=== PATIENT | male | born 1990 | race Caucasian/White ===

== ENCOUNTER 2020-05-10 14:02 | Day surgery (SDC) | payer OTHER ==
[~2020-05-10 14:02] MED LIST: Acetaminophen 500 MG TAB PO PRN; Acetaminophen 500 MG TAB PO SCH; Sodium Chloride 0.9% 1,000 ML IV SCH; Vedolizumab 300 MG in Sodium Chloride 0.9% 250 ML 250 ML IVPB SCH
[2020-05-10 14:55] VITALS: BP 111/80; TEMP 98.1
== END 2020-05-10 15:35 | disposition home or self-care (01) ==
LOC: ONC/OP 14:02
PROVIDERS: ATTEND Internal Medicine Gastroenterology
DX: K51.50 Left sided colitis without complications (principal)
CPT/HCPCS: 96413; J3380; J7050

== ENCOUNTER 2020-05-24 14:10 | Day surgery (SDC) | payer OTHER ==
[2020-05-24] MEDS ORDERED: Sodium Chloride 0.9% 20 ML ONE (14:30)
[2020-05-24 14:39] VITALS: BP 125/74; TEMP 97.9
== END 2020-05-24 15:55 | disposition home or self-care (01) ==
LOC: ONC/OP 14:10
PROVIDERS: ATTEND Internal Medicine Gastroenterology
DX: K51.50 Left sided colitis without complications (principal)
CPT/HCPCS: 96413; J3380; J7050

== ENCOUNTER 2020-06-21 14:58 | Day surgery (SDC) | payer OTHER ==
[2020-06-21] MEDS ORDERED: Sodium Chloride 0.9% 20 ML ONE ×2 (15:00→15:51)
[2020-06-21 15:12] VITALS: BP 121/85; TEMP 98.2
== END 2020-06-21 16:11 | disposition home or self-care (01) ==
LOC: ONC/OP 14:58
PROVIDERS: ATTEND Internal Medicine Gastroenterology
DX: K51.50 Left sided colitis without complications (principal)
CPT/HCPCS: 96413; J3380; J7050

== ENCOUNTER 2020-08-25 14:14 | Day surgery (SDC) | payer OTHER ==
[~2020-08-25 14:14] MED LIST changes: -Acetaminophen 500 MG TAB PO SCH; -Sodium Chloride 0.9% 1,000 ML IV SCH
[2020-08-25] MEDS ORDERED: Sodium Chloride 0.9% 20 ML ONE (14:17)
== END 2020-08-25 15:08 | disposition home or self-care (01) ==
LOC: ONC/OP 14:14
PROVIDERS: ATTEND Internal Medicine Gastroenterology
DX: K51.50 Left sided colitis without complications (principal)
CPT/HCPCS: 96413; J3380; J7050

== ENCOUNTER 2020-10-17 14:15 | Day surgery (SDC) | payer OTHER ==
[2020-10-17] MEDS ORDERED: Sodium Chloride 0.9% 20 ML ONE (14:26)
[2020-10-17 15:18] VITALS: BP 121/81; TEMP 97.5
== END 2020-10-17 16:38 | disposition home or self-care (01) ==
LOC: ONC/OP 14:15
PROVIDERS: ATTEND Internal Medicine Gastroenterology
DX: K51.50 Left sided colitis without complications (principal)
CPT/HCPCS: 96413; J3380; J7050

== ENCOUNTER 2020-12-12 13:49 | Day surgery (SDC) | payer OTHER ==
[2020-12-12] MEDS ORDERED: Acetaminophen 500 MG TAB PO PRN ×2 (14:01)
[2020-12-12] MEDS ORDERED: Sodium Chloride 0.9% 1,000 ML IV SCH (14:15)
[2020-12-12] MEDS ORDERED: Vedolizumab 300 MG in Sodium Chloride 0.9% 250 ML 250 ML IVPB SCH (14:15)
[2020-12-12 14:46] VITALS: BP 106/71; TEMP 98.1
[2020-12-13] MEDS ORDERED: FLU VACC QS2020-21(6MOS UP)/PF 60 MCG/0.5 ML SYRINGE IM ONE (09:00)
== END 2020-12-12 16:24 | disposition home or self-care (01) ==
LOC: ONC/OP 13:49
PROVIDERS: ATTEND Internal Medicine Gastroenterology
DX: K51.50 Left sided colitis without complications (principal)
CPT/HCPCS: 96413; J3380; J7050

== ENCOUNTER 2021-02-06 14:02 | Day surgery (SDC) | payer OTHER ==
[~2021-02-06 14:02] MED LIST changes: +Acetaminophen 500 MG TAB PO SCH; +Sodium Chloride 0.9% 1,000 ML IV SCH
[2021-02-06] MEDS ORDERED: Sodium Chloride 0.9% 20 ML ONE (14:24)
== END 2021-02-06 15:53 | disposition home or self-care (01) ==
LOC: ONC/OP 14:02
PROVIDERS: ATTEND Internal Medicine Gastroenterology
DX: K51.50 Left sided colitis without complications (principal)
CPT/HCPCS: 96413; J3380; J7050

== ENCOUNTER 2021-03-07 14:09 | Day surgery (SDC) | payer OTHER ==
[2021-03-07 14:58] VITALS: BP 130/89; TEMP 98
== END 2021-03-07 15:26 | disposition home or self-care (01) ==
LOC: ONC/OP 14:09
PROVIDERS: ATTEND Internal Medicine Gastroenterology
DX: K51.50 Left sided colitis without complications (principal)
CPT/HCPCS: 96413; J3380; J7050

== ENCOUNTER 2021-04-04 14:39 | Day surgery (SDC) | payer OTHER ==
[2021-04-04 15:21] VITALS: BP 115/81; TEMP 97.4
== END 2021-04-04 15:48 | disposition home or self-care (01) ==
LOC: ONC/OP 14:39
PROVIDERS: ATTEND Internal Medicine Gastroenterology
DX: K51.50 Left sided colitis without complications (principal)
CPT/HCPCS: 96413; J3380; J7050

== ENCOUNTER 2021-05-09 14:52 | Day surgery (SDC) | payer OTHER ==
[2021-05-09 15:14] VITALS: BP 122/86
== END 2021-05-09 16:21 | disposition home or self-care (01) ==
LOC: ONC/OP 14:52
PROVIDERS: ATTEND Internal Medicine Gastroenterology
DX: K51.50 Left sided colitis without complications (principal)
CPT/HCPCS: 96413; J3380; J7050

== ENCOUNTER 2021-06-21 | Day surgery (SDC) | payer OTHER | END 2021-06-21 16:46 | disposition home or self-care (01) | DX: K51.50 Left sided colitis without complications (principal) ==

== ENCOUNTER 2021-07-19 14:24 | Day surgery (SDC) | payer OTHER ==
[~2021-07-19 14:24] MED LIST changes: +Sodium Chloride 0.9% 20 ML ONE
[2021-07-19 16:13] VITALS: BP 119/76
== END 2021-07-19 15:24 | disposition home or self-care (01) ==
LOC: ONC/OP 14:24
PROVIDERS: ATTEND Internal Medicine Gastroenterology
DX: K51.50 Left sided colitis without complications (principal)
CPT/HCPCS: 96413; J3380; J7050

== ENCOUNTER 2021-08-17 14:19 | Day surgery (SDC) | payer OTHER ==
[~2021-08-17 14:19] MED LIST changes: -Acetaminophen 500 MG TAB PO PRN; -Sodium Chloride 0.9% 20 ML ONE; +Ustekinumab 390 MG in Sodium Chloride 0.9% 250 ML 172 ML IV SCH; +diphenhydrAMINE 25 MG CAP PO SCH
[2021-08-17 14:48] VITALS: BP 119/82
== END 2021-08-17 15:33 | disposition home or self-care (01) ==
LOC: ONC/OP 14:19
PROVIDERS: ATTEND Internal Medicine Gastroenterology
DX: K51.50 Left sided colitis without complications (principal)
CPT/HCPCS: 96413; J3358; J7050